=== PATIENT | female | born 1955 ===

== ENCOUNTER 2024-09-08 09:54 | Inpatient (IN) | payer MEDICAID, SELFPAY ==
[2024-09-08] VITALS (25 sets, daily range): BP systolic 101–159; BP diastolic 41–102; PULSE 81–151; RESP 18–137; TEMP 36.6–41.4; O2SAT 92–98; BMI 23.3
--- NOTE | ~2024-09-08 | CT_ITS ---
EXAMINATION: CT HEAD WITHOUT IV CONTRAST HISTORY: AMS, lethargy. TECHNIQUE: Unenhanced helical CT of the head was performed per standard departmental protocol. Coronal and sagittal reformats of the head were also evaluated. One or more of the following techniques was used for dose reduction: Automated exposure control, adjustment of the mA and/or kV according to patient size, use of iterative reconstruction technique. DLP: 782 mGy-cm COMPARISON: There are no prior studies available for comparison. FINDINGS: BRAIN: There is diffuse prominence of the ventricular system and cortical sulci, consistent with atrophy. Periventricular and subcortical white matter hypodensities are noted which are nonspecific, but often seen in the setting of small vessel ischemic disease. There is no mass effect or midline shift. No intra- or extra-axial fluid collections are identified. SINUSES: The visualized paranasal sinuses are clear. The mastoid air cells and middle ear cavities are well pneumatized. ORBITS: The visualized orbits are unremarkable. BONES/SOFT TISSUES: The extracranial soft tissues are unremarkable. The calvarium is intact. No suspicious lytic or sclerotic lesions. CT/CT head/brain wo IV con IMPRESSION: No acute intracranial abnormality. Electronically signed by: Sergio Sniger MD 09/08/2024 01:21 PM EDT
--- NOTE | ~2024-09-08 | XR_ITS ---
EXAMINATION: XR CHEST CLINICAL INFORMATION: hypoxia, cough COMPARISON: None available. TECHNIQUE: Frontal view of the chest was obtained. FINDINGS: No consolidation, pleural effusion or thorax. Cardiomediastinal silhouette is prominent Multilevel thoracic and lumbar spondylosis. XR/XR chest 1V IMPRESSION: No acute airspace disease. Cardiomegaly, mild. Electronically signed by: Mayo Wills MD 09/08/2024 11:15 AM EDT
--- NOTE | ~2024-09-08 | CT_ITS ---
EXAMINATION: CT CHEST WITH CONTRAST CLINICAL INFORMATION: Cough. Hypoxia. Change in mental status. COMPARISON: None available. TECHNIQUE: Multidetector volumetric CT imaging of the chest was obtained after the administration of 65 mL of Omnipaque 350 intravenous contrast without immediate adverse reactions. Axial MIP volume rendering provided. Sagittal and coronal reformatted images were obtained. This CT examination was performed using dose optimization techniques as appropriate, variously including the following: *Automated exposure control *Adjustment of mA and/or kV according to patient size (this includes techniques or standardized protocols for targeted exams where dose is matched to indication/reason for exam; i.e. extremities or head) *Use of iterative reconstruction technique DLP: 327.53 mGy centimeter. FINDINGS: Patient's motion artifact. 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 Patient's large body habitus. Both upper extremities at the side of the thorax. LUNGS: Pulmonary patchy groundglass, bilaterally extending from the perihilar regions. No bronchiectasis. No honeycombing. No gross pulmonary nodules. MEDIASTINUM: No aneurysm or dissection, thoracic aorta. Calcified plaques in the thoracic aorta and coronary arteries. No pericardial effusion. No pneumomediastinum. No hemopericardium. Mild prominent lymph nodes. Unable to evaluate the pulmonary artery or its main branches Heterogeneous prominent thyroid gland with a 2.5 cm mixed solid or cystic nodule left thyroid lobe. PLEURA: No pleural effusions. No pneumothorax. No hemothorax. No calcified pleural plaques. AXILLA: No lymphadenopathy. UPPER ABDOMEN: Unremarkable OSSEOUS STRUCTURES: Decreased attenuation of the liver. Multilevel spondylosis. Osteopenia versus osteoporosis. No acute fracture or listhesis in the axial skeleton. No acute rib fracture. CT/CT chest w IV con IMPRESSION: Consider mild to moderate pulmonary edema in the correct clinical settings. Fleischner guidelines were followed. Electronically signed by: Mayo Wills MD 09/08/2024 01:29 PM EDT
--- NOTE | 2024-09-08 10:10 | ECG_ITS ---
Test Reason : TACHYCARDIA Blood Pressure : */* mmHG Vent. Rate : 140 BPM Atrial Rate : 140 BPM P-R Int : 156 ms QRS Dur : 74 ms QT Int : 266 ms P-R-T Axes : 49 30 42 degrees QTcB Int : 406 ms Sinus tachycardia Nonspecific T wave abnormality Abnormal ECG No previous ECGs available Referred By: Lyudmila Stoner Electronically Signed By: Daniel Miles
--- NOTE | 2024-09-08 10:11 | ED_ITS ---
HPI - General Adult General Chief complaint: General Medical Stated complaint: Fever lethargic low 02 Time Seen by Provider: 09/08/24 09:58 Source: patient, family and EMS Mode of arrival: EMS Limitations: language barrier (Citizen Of [place] speaking) and altered mental status History of Present Illness ED Provider: Lyudmila Stoner NP HPI narrative: Patient is a 69-year-old female who presents emergency department via EMS, patient's daughter and son-in-law are present, she is primarily Citizen [place] speaking. Son-in-law providing majority of history at this time. Entire family has been ill with upper respiratory symptoms over the past few days. She began getting ill with cough and fatigue over the past 3-4 days however she was still able to go to work. Today she was very lethargic, not able to go to work, had an episode of vomiting this morning. When asked whether she is experiencing abdominal pain she shakes her head no. Received Advil 400 mg orally at home. Her son-in-law reports she has a history of diabetes, has not seen a doctor in 2 years, did point of care glucose testing for a year without elevation therefore stopped checking them. She is not currently on any medications. She is not a cigarette smoker. She is oriented to person, disoriented to place and time, answers minimal questions but follows commands appropriately. No recent travel. No recent gastrointestinal symptoms. No recent surgeries. Related Data Home Medications ?Medication ?Instructions ?Recorded ?Confirmed ibuprofen 200 mg tablet (Advil) 400 mg PO Q6H PRN Pain 09/08/24 09/08/24 Allergies Allergy/AdvReac Type Severity Reaction Status Date / Time No Known Allergies Allergy Verified 09/08/24 10:12 [facility] Past Medical History Attestation statement: The following information was validated with the patient. Source: old records reviewed Social History Social History Patient Tobacco Use Status: Never used Tobacco Smoked in Last 30 Days: No Use of substances other than those prescribed or required for medical reasons: No Advance Directives: No Advance Directives Information Provided: Yes Do you have a plan to hurt others: No Plan Nutrition Risks: On aspiration precautions and Poor intake 0-25% >4 days Physical Exam ED Vital Signs: Vital Signs - 24 hr 09/08/24 10:04 09/08/24 10:18 09/08/24 10:30 Temperature 103.1 F H 106.5 F H Pulse Rate 132 H 136 H Pulse Rate [Automated] 140 H Respiratory Rate 30 H 34 H 36 H Blood Pressure 159/102 H Pulse Oximetry 92 92 Oxygen Delivery Method Room Air Room Air Oxygen Flow Rate 09/08/24 10:33 09/08/24 10:50 09/08/24 11:07 Temperature 106.3 F H 105.8 F H 105.5 F H Pulse Rate 138 H 136 H 140 H Pulse Rate [Automated] Respiratory Rate 33 H 35 H 36 H Blood Pressure 101/41 L Pulse Oximetry 95 95 98 Oxygen Delivery Method Nasal Cannula Nasal Cannula Nasal Cannula Oxygen Flow Rate 2 2 2 09/08/24 11:16 09/08/24 11:20 09/08/24 11:25 Temperature 105.3 F H 105.3 F H 105.1 F H Pulse Rate 151 H 148 H Pulse Rate [Automated] Respiratory Rate 33 H 30 H Blood Pressure 103/58 L 115/50 L Pulse Oximetry 97 98 Oxygen Delivery Method Nasal Cannula Nasal Cannula Oxygen Flow Rate 2 2 09/08/24 11:37 09/08/24 11:48 09/08/24 11:54 Temperature 104.9 F H 104.7 F H 104.7 F H Pulse Rate 137 H 135 H 135 H Pulse Rate [Automated] Respiratory Rate 137 H 35 H 30 H Blood Pressure 111/47 L 111/49 L 109/50 L Pulse Oximetry 96 97 96 Oxygen Delivery Method Nasal Cannula Nasal Cannula Nasal Cannula Oxygen Flow Rate 2 2 2 09/08/24 11:58 09/08/24 12:10 09/08/24 12:15 Temperature 104.7 F H 104.0 F H 104.5 F H Pulse Rate 136 H 133 H Pulse Rate [Automated] Respiratory Rate 30 H 25 H Blood Pressure 107/55 L 107/55 L Pulse Oximetry 96 95 Oxygen Delivery Method Nasal Cannula Nasal Cannula Oxygen Flow Rate 2 2 09/08/24 12:32 09/08/24 12:43 09/08/24 13:31 Temperature 104.0 F H 103.8 F H 102.5 F H Pulse Rate 132 H 133 H 129 H Pulse Rate [Automated] Respiratory Rate 30 H 27 H 30 H Blood Pressure 119/56 L 120/65 114/45 L Pulse Oximetry 95 95 95 Oxygen Delivery Method Nasal Cannula Nasal Cannula Nasal Cannula Oxygen Flow Rate 2 2 2 09/08/24 14:06 09/08/24 14:08 Temperature 102.4 F H 101.0 F H Pulse Rate 120 H Pulse Rate [Automated] Respiratory Rate 22 H Blood Pressure 103/50 L Pulse Oximetry 96 Oxygen Delivery Method Nasal Cannula Oxygen Flow Rate 2 BMI result Body Mass Index 23.3 Appearance: Alert.?Oriented to person, place and time. No acute distress.?Normal affect. Eyes: Pupils equal, round and reactive to light.? ENT: Pharynx normal.?? Neck: Normal inspection.? Neck supple.?? CVS: Heart sounds normal. Normal heart rate and rhythm.? Pulses normal.?? Respiratory: No respiratory distress.? Lung sounds rhonchi to the bilateral lower lobes. Room-air hypoxia 91-92%, tachypneic Abdomen: Soft and non-tender. Normoactive bowel sounds. Skin: Skin warm and dry.? Normal skin color.? ?? Extremities: No lower extremity edema.? No calf ttp? Neuro: Moves all extremities spontaneously. No focal neuro deficits. Medications Administered Generic Name Dose Route Start Last Admin Trade Name Freq PRN Reason Stop Dose Admin Lactated Ringer's 1,000 mls @ 125 mls/hr 09/08/24 14:45 09/08/24 14:50 Lr IVCONT 125 mls/hr .Q8H YFN Administration Discontinued Medications Generic Name Dose Route Start Last Admin Trade Name Freq PRN Reason Stop Dose Admin Acetaminophen 650 mg 09/08/24 10:15 09/08/24 10:51 Acetaminophen Supp 650 Mg Supp.Rect WA 09/08/24 10:16 650 mg ONCE ONE Administration Ceftriaxone Sodium 1 gm 09/08/24 10:10 09/08/24 10:24 Ceftriaxone Sodium 1 Gm Vial IVPUSH 09/08/24 10:11 1 gm ONCE ONE Administration Ceftriaxone Sodium 1 gm 09/08/24 10:43 09/08/24 11:08 Ceftriaxone Sodium 1 Gm Vial IVPUSH 09/08/24 10:44 1 gm ONCE ONE Administration Sodium Chloride 1,905 mls @ 1,905 mls/hr 09/08/24 10:15 09/08/24 11:40 Ns 30 ml/kg infuse over 1 hr (1905 ml) 09/08/24 11:14 Infused IV Infusion .Q1H STA Azithromycin 500 mg/ Sodium 250 mls @ 125 mls/hr 09/08/24 10:43 09/08/24 13:30 Chloride IV 09/08/24 12:42 Infused ONCE ONE Infusion Sodium Chloride 1,000 mls @ 999 mls/hr 09/08/24 12:00 09/08/24 14:11 Ns IV 09/08/24 13:00 Infused .Q1H1M YFN Infusion Ibuprofen 600 mg 09/08/24 12:34 09/08/24 12:42 Ibuprofen 600 Mg Tablet PO 09/08/24 12:35 600 mg ONCE ONE Administration Iohexol 100 ml 09/08/24 13:14 09/08/24 13:14 Iohexol 350 Mg/Ml 100 Ml Infus..Btl IV 09/08/24 13:15 65 ml ONCE ONE Administration Oseltamivir Phosphate 75 mg 09/08/24 14:09 09/08/24 14:50 Oseltamivir Phosphate 75 Mg Capsule PO 09/08/24 14:10 75 mg ONCE STA Administration Medical Decision Making Medical Decision Making MDM Narrative: Patient is a 69-year-old female with reported past medical history of diabetes, hyperlipidemia who presents emergency department via EMS with son-in-law present providing majority of history, recent URI household members, patient with illness over the past 3-4 days. Today with the acute change, lethargy, fatigue, febrile tachycardic tachypneic and hypoxic. Sepsis alert called. Suspect respiratory etiology, potentially pneumonia, will cover with Rocephin, blood cultures lactic acid being obtained, sepsis fluid bolus has been ordered, antipyretic to be administered. She had a single episode of vomiting reported this morning, has soft nonrigid abdomen, no guarding, no reported pain upon palpation. 10:43 Nursing staff have advised me that they placed a rectal temperature probe with reading of 106.5, she has received rectal Tylenol, IV fluids are being administered, ice packs have been placed in a cooling blanket is on. Will add an additional Rocephin 1 g and azithromycin for coverage. Pending labs and CXR at this time, straight catheterization to be performed, pending CT imaging. 11:47 Patient found to have influenza a, urinary tract infection, anticipating hospital admission for encephalopathy and further treatment. Remains tachycardic and febrile at this time, cooling blankets still on, tachypnea has decreased, O2 saturation 96% on 2 L via nasal cannula. Patient's family updated on plan of care at this time 13:[address] without acute pathology, CT of the chest without infectious etiology. Repeat lactic acid was 4.7, patient then received an additional L normal saline IV fluid bolus post sepsis bolus. Differential Diagnosis Differential Diagnoses: The differential diagnosis associated with the presentation includes (URI, bronchitis, pneumonia, coronavirus, influenza, UTI, lower suspicion for acute intra-abdominal pathology/surgical abdomen, as per gastroenteritis) Admission/Observation Consideration of admission/observation: Escalation of care including admission/observation considered Lab Data MDM Lab Attestation statement: I reviewed the patient's lab results. 09/08/24 10:22 09/08/24 10:22 Labs: Lab Results 09/08/24 09/08/24 09/08/24 Range/Units 10:22 10:24 10:30 WBC 10.4 (4.8-10.8) X10*3/uL RBC 5.04 (4.20-5.50) X10*6/uL Hgb 14.6 (12.0-16.0) g/dl Hct 43.9 (37.0-47.0) % MCV 87.1 (80.0-98.0) fL MCH 29.0 (27.0-33.0) pg MCHC 33.3 (31.0-35.0) g/dl RDW 12.5 (11.0-16.0) % Plt Count 260 (160-400) X10*3/uL MPV 11.0 (9.4-12.3) fL Immature Gran % (Auto) 2.1 H (0.0-0.4) % Neut % (Auto) 77.9 H (45-73) % Lymph % (Auto) 11.4 L (20-40) % [place] % (Auto) 7.2 (2-11) % Eos % (Auto) 0.8 (0-4) % Baso % (Auto) 0.6 (0-2) % Lymph # (Auto) 1.2 (1.2-4.9) X10*3/uL [place] # (Auto) 0.8 (0.1-1.2) X10*3/uL Eos # (Auto) 0.1 (0.0-0.4) X10*3/uL Baso # (Auto) 0.1 (0.0-0.2) X10*3/uL Abs Immat Gran (auto) 0.22 H (0.00-0.03) X10*3/uL Absolute Neuts (auto) 8.1 (2.0-8.3) x10*3/uL Absolute Nucleated RBC 0.000 (0.0-0.012) X10*3/uL Nucleated RBC % (auto) 0.0 (0.0-0.2) /100WBC Hold Blue Top SEE NOTE VBG pH 7.46 H (7.32-7.43) VBG pCO2 30 mmHg VBG pO2 42 mmHg VBG HCO3 21 L (22-26) mmol/L VBG O2 Saturation 72.0 % VBG Base Excess -0.9 mmol/L Sodium 138 (135-145) mmol/L Potassium 3.2 L (3.3-5.1) mmol/L Chloride 101 (96-108) mmol/L Carbon Dioxide 23 (22-29) mmol/L Anion Gap 17 (12-20) BUN 17 H (9-16) mg/dL Creatinine 0.99 (0.5-1.4) mg/dL Estim Creat Clear Calc 48.9 Estimated GFR 56 POC Glucose (60-115) mg/dL Random Glucose 152 H (60-115) mg/dL Lactic Acid 3.5 H* (0.5-2.0) mmol/L Lactic Acid F/U @ 2Hr (0.5-2.0) mmol/L Calcium 8.8 (8.4-10.2) mg/dL Magnesium 1.9 (1.6-2.6) mg/dL Total Bilirubin 0.4 (0.0-1.0) mg/dL AST 92 H (5-31) U/L ALT 94 H (0-31) U/L Alkaline Phosphatase 133 H (39-117) U/L Total Creatine Kinase 47 (26-140) U/L Troponin I High Sens < 2.7 (<3.5-17.0) ng/L B-Natriuretic Peptide 19 (<100) pg/mL Total Protein 7.4 (6.5-8.0) g/dL Albumin 4.4 (3.5-5.0) g/dL Lipase 30 (8-78) U/L Hold Red Top See Note Urine Color Urine Appearance Urine pH (5.0-9.0) Ur Specific Camp (1.005-1.025) Urine Protein (Neg-Trace) mg/dL Urine Glucose (UA) (Negative) mg/dL Urine Ketones (Negative) mg/dL Urine Blood (Negative) Urine Nitrite (Negative) Ur Leukocyte Esterase (Negative) Urine RBC (0-2) /HPF Urine WBC (0-5) /HPF Ur Squamous Epith Cells (0-2) /HPF Urine Bacteria (None Seen) Hyaline Casts (0-2) /LPF Influenza Type A (PCR) POSITIVE A (Negative) Influenza Type B (PCR) NEGATIVE (Negative) RSV RNA Qual (PCR) NEGATIVE (Negative) SARS-CoV-2 RNA (RT-PCR) NEGATIVE (Negative) 09/08/24 09/08/24 09/08/24 Range/Units 10:47 11:19 12:50 WBC (4.8-10.8) X10*3/uL RBC (4.20-5.50) X10*6/uL Hgb (12.0-16.0) g/dl Hct (37.0-47.0) % MCV (80.0-98.0) fL MCH (27.0-33.0) pg MCHC (31.0-35.0) g/dl RDW (11.0-16.0) % Plt Count (160-400) X10*3/uL MPV (9.4-12.3) fL Immature Gran % (Auto) (0.0-0.4) % Neut % (Auto) (45-73) % Lymph % (Auto) (20-40) % [place] % (Auto) (2-11) % Eos % (Auto) (0-4) % Baso % (Auto) (0-2) % Lymph # (Auto) (1.2-4.9) X10*3/uL [place] # (Auto) (0.1-1.2) X10*3/uL Eos # (Auto) (0.0-0.4) X10*3/uL Baso # (Auto) (0.0-0.2) X10*3/uL Abs Immat Gran (auto) (0.00-0.03) X10*3/uL Absolute Neuts (auto) (2.0-8.3) x10*3/uL Absolute Nucleated RBC (0.0-0.012) X10*3/uL Nucleated RBC % (auto) (0.0-0.2) /100WBC Hold Blue Top VBG pH (7.32-7.43) VBG pCO2 mmHg VBG pO2 mmHg VBG HCO3 (22-26) mmol/L VBG O2 Saturation % VBG Base Excess mmol/L Sodium (135-145) mmol/L Potassium (3.3-5.1) mmol/L Chloride (96-108) mmol/L Carbon Dioxide (22-29) mmol/L Anion Gap (12-20) BUN (9-16) mg/dL Creatinine (0.5-1.4) mg/dL Estim Creat Clear Calc Estimated GFR POC Glucose 123 H (60-115) mg/dL Random Glucose (60-115) mg/dL Lactic Acid (0.5-2.0) mmol/L Lactic Acid F/U @ 2Hr 4.7 H* (0.5-2.0) mmol/L Calcium (8.4-10.2) mg/dL Magnesium (1.6-2.6) mg/dL Total Bilirubin (0.0-1.0) mg/dL AST (5-31) U/L ALT (0-31) U/L Alkaline Phosphatase (39-117) U/L Total Creatine Kinase (26-140) U/L Troponin I High Sens (<3.5-17.0) ng/L B-Natriuretic Peptide (<100) pg/mL Total Protein (6.5-8.0) g/dL Albumin (3.5-5.0) g/dL Lipase (8-78) U/L Hold Red Top Urine Color Yellow Urine Appearance Clear Urine pH 6.5 (5.0-9.0) Ur Specific [place] 1.015 (1.005-1.025) Urine Protein 30 (1+) H (Neg-Trace) mg/dL Urine Glucose (UA) Negative (Negative) mg/dL Urine Ketones Negative (Negative) mg/dL Urine Blood Large (3+) H (Negative) Urine Nitrite Positive H (Negative) Ur Leukocyte Esterase Negative (Negative) Urine RBC 11-20 H (0-2) /HPF Urine WBC 0-5 (0-5) /HPF Ur Squamous Epith Cells 0-2 (0-2) /HPF Urine Bacteria Trace (None Seen) Hyaline Casts 0-2 (0-2) /LPF Influenza Type A (PCR) (Negative) Influenza Type B (PCR) (Negative) RSV RNA Qual (PCR) (Negative) SARS-CoV-2 RNA (RT-PCR) (Negative) Independent Interpretation I performed an independent interpretation of an: EKG (Sinus tachycardia with ventricular rate of 140, ISIAH, QTC 406, no ST-elevation) Radiology Impression Discussion of test interpretation with radiology: I have reviewed the radiologist's reading. Radiologist Impression: XR/XR chest 1V IMPRESSION: No acute airspace disease. Cardiomegaly, mild. CT/CT head/brain wo IV con IMPRESSION: No acute intracranial abnormality. CT/CT chest w IV con IMPRESSION: Consider mild to moderate pulmonary edema in the correct clinical settings. Independent Historian Clinical information obtained from an independent historian. History obtained from or confirmed by: EMS and Other (See narrative above) Critical Care Time Critical Care Time Critical Care Time: Yes Total Critical Care Time: 60 Attestation: Time is exclusive of separately billable procedures. Time includes: direct patient care, patient reassessment, coordination of patient care, interpretation of data (laboratory data, pulse oximetry, arterial blood gases and chest xrays), review of patient's medical records, medical consultation and documentation of patient care. Procedures excluded from critical care time: central intravenous line placement and electrocardiography. Discharge Plan Discharge Clinical Impression: Acidosis, lactic, Acute UTI, Influenza A, Encephalopathy Patient Disposition: Admitted As Inpatient
--- NOTE | 2024-09-08 10:15 | PC.NURSE ---
Pt biba from home for cough/lethargy/nausea/vomiting x3 days. Per family- pt has felt hot at home, has not checked temperature at home. Pt normally independent/ambulatory at baseline- arrives lethargic, non responsive to questions. Pt lethargic/minimally responsive to questions/not following commands, able to track with eyes. Pt placed on court recording monitor- sinus tach 140s-150s, tachypneic- 30s, oral temp 103.1. CAR PUSHER Lukasz @ bedside with tech and this RN. Sepsis alert called @ 1013am. [place] Tylenol given, rectal probe placed reading 106.5 rectal temp. Ice packs placed under pt arms/groin/neck/feet. Pt also placed on cooling blanket. BP cycling q10 min- pt hypertensive 180s/100s upon arrival. Verbal order per VALENTE Lal for straight cath- 14fr straight cath done with output 700ccs of clear/yellow urine and sent to lab. Labs/ekg and blood cultures obtained and sent to lab. 18g IV placed by EMS- patent, asymptomatic. Additional IV placed 22g Left wrist- patent, asymptomatic. Abx given after blood cultures obtained, sepsis fluids infusing per MAR. Call ring within reach, all needs met at this time.
[2024-09-08 10:32] LABS: MANUAL DIFF FLAG NO
[2024-09-08 10:34] LABS: Venous Blood Gas Refer to POC result
[2024-09-08 10:35] LABS: VBG HCO3 21 mmol/L (22-26); VBG O2 % Saturation 72.0 %
[2024-09-08 10:51] LABS: Alanine Aminotransferase 94 U/L (0-31); Albumin Level 4.4 g/dL (3.5-5.0); Alkaline Phosphatase 133 U/L (39-117); Anion Gap 17 (12-20); Aspartate Amino Transferase 92 U/L (5-31); Blood Urea Nitrogen 17 mg/dL (9-16); Calcium 8.8 mg/dL (8.4-10.2); Carbon Dioxide 23 mmol/L (22-29); Chloride 101 mmol/L (96-108); Creatinine Clr Calc Pharmacy 48.9; Estimated Glomerular Filt Rate 56; Hematocrit 43.9 % (37.0-47.0); Hemoglobin 14.6 g/dl (12.0-16.0); Imm Gran Abs Auto 0.22 X10*3/uL (0.00-0.03); Imm Gran Pct Auto 2.1 % (0.0-0.4); Lipase 30 U/L (8-78); Lymphocytes Absolute Auto 1.2 X10*3/uL (1.2-4.9); Magnesium 1.9 mg/dL (1.6-2.6); Mean Corpuscular HGB Conc 33.3 g/dl (31.0-35.0); Mean Corpuscular Hemoglobin 29.0 pg (27.0-33.0); Mean Corpuscular Volume 87.1 fL (80.0-98.0); NRBC Abs Auto 0.000 X10*3/uL (0.0-0.012); NRBC Pct Auto 0.0 /100WBC (0.0-0.2); Platelet Count 260 X10*3/uL (160-400); Potassium 3.2 mmol/L (3.3-5.1); Red Blood Count 5.04 X10*6/uL (4.20-5.50); Sodium 138 mmol/L (135-145); Total Protein 7.4 g/dL (6.5-8.0); White Blood Count 10.4 X10*3/uL (4.8-10.8)
[2024-09-08] MEDS: Acetaminophen Supp 650 MG SUPP.RECT PR ×2 (10:51→21:18)
[2024-09-08 10:57] LABS: B Type Natriuretic Peptide 19 pg/mL (<100)
[2024-09-08 11:00] LABS: Troponin-I High Sensitivity < 2.7 ng/L (<3.5-17.0)
[2024-09-08 11:21] LABS: Resp Syncy Virus RNA Qual PCR NEGATIVE (Negative); SARS COV2 PCR INHOUSE NEGATIVE (Negative)
[2024-09-08 11:33] LABS: Appearance Urine Clear; Glucose Urine UA Negative (Negative); PH 6.5 (5.0-9.0); Specific Gravity - Urine 1.015 (1.005-1.025); UMIC TRIGGER UACC YES
[2024-09-08 11:50] LABS: UACC Culture Trigger YES
[2024-09-08 12:30] LABS: Reflex Lactate? Lactic Acid Added
--- NOTE | 2024-09-08 12:45 | PC.NURSE ---
patient passed nursing swallow evaluation prior to PO medication administration. pt tolerated medication administration - pills whole w/ water w/o difficulty.
[2024-09-08] MEDS: iohexoL 350 MG/ML 100 ML INFUS..BTL IV (13:14)
[2024-09-08 13:19] LABS: ~Lactic Acid-LAB USE ONLY 4.7 mmol/L (0.5-2.0)
--- NOTE | 2024-09-08 13:45 | PC.NURSE ---
Pt temp decreasing- rectal temp 102.5. Pt remains sinus tach on cardiac specialist- 130s, Lukasz [employer] TENDER aware. Remains on continuous O2 probe, rectal temp probe, cardiac specialist, and BP cycling q 10min to monitor. Pt more alert- responding to questions/able to follow commands/make needs known. Pt passed bedside swallow eval w/o difficulty. Pt having conversation with at bedside. Pt remains on cooling blanket- 102.5 rectal temp. Family updated on plan of care, pending CT results. Call ring within reach, all needs met.
--- NOTE | 2024-09-08 14:41 | PHA.MEDREC ---
Addendum entered by Jackson Carney RPh 09/08/24 14:51: MED REC REVIEWED BY [facility] Original Note: Pharmacy Consult ? Medication Reconciliation Pharmacy has completed the medication reconciliation. Spoke with pt son-in-law at bedside and he confirmed the pt is only taking Advil (2 tabs) as needed for pain and he states the pt took them yesterday.
[2024-09-08 14:43] LABS: Glucose, Whole Blood 123 mg/dL (60-115)
[2024-09-08] MEDS: Lactated Ringers 1,000 ML 125 ML IVCONT ×2 (14:50→21:57)
--- NOTE | 2024-09-08 14:51 | P.HPHOSP_ITS ---
History of Present Illness Date of Service: 09/08/24 Attending physician on admission: Indigo Madison Chief Complaint: Confusion Gilmer Rascon is a 69 years old [place] woman with no significant past medical history accompanied by her son-in-law (he helped with translation) due to confusion. She has been complaining of fever, headache and mild cough. These symptoms has been going on for 3 days. The patient is more alert now and able to answer my questions. She denied chest pain, shortness on breath, abdominal pain, nausea, vomiting or diarrhea. There are multiple family members with same symptoms. She has been taking aspirin for her symptoms. She does not take medications daily. At some point she was diagnosed with diabetes but subsequently medications were stopped after her glucose significantly improved. In the ED, she was found to be quite tachycardic and tachypneic. Max temp was 106.5 degrees. Most recent 1 is 100.1, O2 sat 96% -she was placed on oxygen, nasal cannula 2 L/min, heart rate 116 and normal blood pressure (at the time of my evaluation). There is no leukocytosis, differential remarkable for 77.9% neutrophils and 11.4 % lymphocytes. There is marked lactic acidosis of 4.7. PH is 7.46 and pCO2 30. There is hypokalemia and normal CO2. BUN is 17 and creatinine 0.99. Transaminases and alk-phos are elevated. Troponin is < 2.7 BNP and lipase are normal. Urinalysis showed pH of 6.5, specific gravity 1.015, 1+ proteinuria, negative glucose, negative ketones, large blood, positive nitrate, negative leukocyte steroids, RBC 11-20, WBC 0-5. Viral serologies positive for influenza. RSV and COVID are negative. Head CT scan showed no acute intracranial abnormality. Chest CT scan with IV contrast showed: Consider [id number] pulmonary edema in the correct clinical setting. ECG shows sinus tachycardia, HR 140 bpm and nonspecific T-wave abnormality. ED tx: Ceftriaxone 1 g, azithromycin 500 mg IV, acetaminophen 650 mg, NS 2,905 ml bolus, ibuprofen 600 mg p.o. Review of Systems 2 Review of Systems: All 12 systems were reviewed and normal except as noted in HPI. [facility] Social History Patient Tobacco Use Status: Never used Tobacco Smoked in Last 30 Days: No Use of substances other than those prescribed or required for medical reasons: No Advance Directives: No Advance Directives Information Provided: Yes Do you have a plan to hurt others: No Plan Nutrition Risks: On aspiration precautions and Poor intake 0-25% >4 days Meds Allergies Allergy/AdvReac Type Severity Reaction Status Date / Time No Known Allergies Allergy Verified 09/08/24 10:12 Active Medications: Current Medications Acetaminophen (Acetaminophen 325 Mg Tablet) 975 mg PO Q6H PRN PRN Reason: Pain, Mild 1-3,fever,headache Calcium Carbonate (Calcium Carbonate 750 Mg Tab.Chew) 750 mg PO Q4H PRN PRN Reason: Heartburn Enoxaparin Sodium (Enoxaparin Sodium 40 Mg/0.4 Ml Syringe) 40 mg SUBCUT Q24H YFN Lactated Ringer's (Lr) 1,000 mls @ 125 mls/hr IVCONT .Q8H YFN Magnesium Hydroxide (Milk Of Magnesia 30 Ml Oral.Susp) 30 ml PO DAILY PRN PRN Reason: Constipation Sodium Chloride (0.9 % Sodium Chloride Flush 3 Ml Syringe) 3 ml IVFLUSH QSHIFT YFN Home Medications ?Medication ?Instructions ?Recorded ?Confirmed ?Last Taken ?Type ibuprofen 200 mg tablet (Advil) 400 mg PO Q6H PRN Pain 09/08/24 09/08/24 09/07/24 History Physical Exam 2 Vital Signs and Narrative: Vital Signs: Last Vital Signs Temp 101.0 F H 09/08/24 14:08 Pulse 120 H 09/08/24 14:08 Resp 22 H 09/08/24 14:08 BP 103/50 L 09/08/24 14:08 Pulse Ox 96 09/08/24 14:08 O2 Del Method Nasal Cannula 09/08/24 14:08 O2 Flow Rate 2 09/08/24 14:08 BMI result Body Mass Index 23.3 Constitutional - Awake and Alert, No apparent distress HEENT - PERRL, EOMI Heart - RRR, No edema Lungs - Normal lung expansion, Normal respiratory effort, No respiratory distress, CTA bilaterally Abdomen - NT / ND; +BS; No rebound or guarding Extremities - no calf tenderness bilaterally, no swelling Musculoskeletal - Normal inspection, normal ROM Skin - Warm/Dry. Pallor. Neurological - Alert & oriented x3. Moving all extremities spontaneously. No facial droop. Normal speech. No meningismus. Psychological - Appropriate affect Results Labs 09/08/24 16:58 09/08/24 16:58 Labs: Laboratory Results - last 24 hr 09/08/24 09/08/24 09/08/24 10:22 10:24 10:30 MCV 87.1 MCH 29.0 MCHC 33.3 RDW 12.5 Plt Count 260 MPV 11.0 Immature Gran % (Auto) 2.1 H Neut % (Auto) 77.9 H Lymph % (Auto) 11.4 L [place] % (Auto) 7.2 Eos % (Auto) 0.8 Baso % (Auto) 0.6 Lymph # (Auto) 1.2 [place] # (Auto) 0.8 Eos # (Auto) 0.1 Baso # (Auto) 0.1 Abs Immat Gran (auto) 0.22 H Absolute Neuts (auto) 8.1 Absolute Nucleated RBC 0.000 Nucleated RBC % (auto) 0.0 Hold Blue Top SEE NOTE VBG pH 7.46 H VBG pCO2 30 VBG pO2 42 VBG HCO3 21 L VBG O2 Saturation 72.0 VBG Base Excess -0.9 Anion Gap 17 Estim Creat Clear Calc 48.9 Estimated GFR 56 POC Glucose Random Glucose 152 H Lactic Acid 3.5 H* Lactic Acid F/U @ 2Hr Calcium 8.8 Magnesium 1.9 Total Bilirubin 0.4 AST 92 H ALT 94 H Alkaline Phosphatase 133 H B-Natriuretic Peptide 19 Total Protein 7.4 Albumin 4.4 Lipase 30 Hold Red Top See Note Urine Color Urine Appearance Urine pH Ur Specific [place] Urine Protein Urine Glucose (UA) Urine Ketones Urine Blood Urine Nitrite Ur Leukocyte Esterase Urine RBC Urine WBC Ur Squamous Epith Cells Urine Bacteria Hyaline Casts Influenza Type A (PCR) POSITIVE A Influenza Type B (PCR) NEGATIVE RSV RNA Qual (PCR) NEGATIVE SARS-CoV-2 RNA (RT-PCR) NEGATIVE 09/08/24 09/08/24 09/08/24 10:47 11:19 12:50 MCV MCH MCHC RDW Plt Count MPV Immature Gran % (Auto) Neut % (Auto) Lymph % (Auto) [place] % (Auto) Eos % (Auto) Baso % (Auto) Lymph # (Auto) [place] # (Auto) Eos # (Auto) Baso # (Auto) Abs Immat Gran (auto) Absolute Neuts (auto) Absolute Nucleated RBC Nucleated RBC % (auto) Hold Blue Top VBG pH VBG pCO2 VBG pO2 VBG HCO3 VBG O2 Saturation VBG Base Excess Anion Gap Estim Creat Clear Calc Estimated GFR POC Glucose 123 H Random Glucose Lactic Acid Lactic Acid F/U @ 2Hr 4.7 H* Calcium Magnesium Total Bilirubin AST ALT Alkaline Phosphatase B-Natriuretic Peptide Total Protein Albumin Lipase Hold Red Top Urine Color Yellow Urine Appearance Clear Urine pH 6.5 Ur Specific [place] 1.015 Urine Protein 30 (1+) H Urine Glucose (UA) Negative Urine Ketones Negative Urine Blood Large (3+) H Urine Nitrite Positive H Ur Leukocyte Esterase Negative Urine RBC 11-20 H Urine WBC 0-5 Ur Squamous Epith Cells 0-2 Urine Bacteria Trace Hyaline Casts 0-2 Influenza Type A (PCR) Influenza Type B (PCR) RSV RNA Qual (PCR) SARS-CoV-2 RNA (RT-PCR) Imaging Radiologist's Impressions: Impressions Chest X-Ray 09/08/24 09:50 IMPRESSION: No acute airspace disease. Cardiomegaly, mild. Electronically signed by: Mayo Wills MD 09/08/2024 11:15 AM EDT RP Chest CT 09/08/24 12:00 IMPRESSION: Consider mild to moderate pulmonary edema in the correct clinical settings. Fleischner guidelines were followed. Electronically signed by: Mayo Wills MD 09/08/2024 01:29 PM EDT RP Head CT 09/08/24 12:00 IMPRESSION: No acute intracranial abnormality. Electronically signed by: Sergio Singer MD 09/08/2024 01:21 PM EDT RP Assessment and Plan (1) Encephalitis due to influenza virus: Status: Acute (2) Elevated LFTs: Status: Acute (3) Severe sepsis: Status: Acute Plan Gilmer Rascon is a 69 y/o [place] woman admitted with: Encephalitis secondary to influenza A. Admit to hospitalist service. Telemetry. Pulse oximetry. Droplet precautions. Neuro checks. Start therapy with Tamiflu 75 mg p.o. b.i.d (will adjust to renal function is neccessary. Supportive therapy IV fluids and Tylenol. ID consult. Severe sepsis criteria: Tachycardia, tachypnea, fever and acute lactic acidosis; secondary to above Received 30ml/kg bolus (NS) + extra liter. Continue Tamiflu. Blood cultures obtained -will follow results. Continue to monitor vital signs, and lactic acid. Elevated transaminases and alk-phos. Likely secondary to influenza infection. Continue to monitor. DVT prophylaxis: Lovenox Code status: Full Patient will need hospitalization for at least 2 midnights for encephalopathy secondary to influenza treatment with continuous monitoring of neurological status, supportive therapy and evaluation by subspecialty. Quality Stroke Does the patient have a stroke diagnosis?: No VTE Prior VTE?: No VTE Risk Level:: Medical - moderate - high VTE Device Contraindication: Treatment Not Indicated VTE Drug Contraindication: N/A - Med Ordered
[2024-09-08 14:53] LABS: Reflex Lactate? 2 Y
[2024-09-08 15:50] LABS: ~Lactic Acid-LAB USE ONLY 2.3 mmol/L (0.5-2.0)
[2024-09-08 17:03] LABS: MANUAL DIFF FLAG NO
[2024-09-08 17:14] LABS: Hematocrit 40.9 % (37.0-47.0); Hemoglobin 13.3 g/dl (12.0-16.0); Imm Gran Abs Auto 0.13 X10*3/uL (0.00-0.03); Imm Gran Pct Auto 1.1 % (0.0-0.4); Lymphocytes Absolute Auto 0.7 X10*3/uL (1.2-4.9); Mean Corpuscular HGB Conc 32.5 g/dl (31.0-35.0); Mean Corpuscular Hemoglobin 28.8 pg (27.0-33.0); Mean Corpuscular Volume 88.5 fL (80.0-98.0); NRBC Abs Auto 0.000 X10*3/uL (0.0-0.012); NRBC Pct Auto 0.0 /100WBC (0.0-0.2); Platelet Count 240 X10*3/uL (160-400); Red Blood Count 4.62 X10*6/uL (4.20-5.50); White Blood Count 12.4 X10*3/uL (4.8-10.8)
[2024-09-08 17:25] LABS: Alanine Aminotransferase 131 U/L (0-31); Albumin Level 3.6 g/dL (3.5-5.0); Alkaline Phosphatase 126 U/L (39-117); Anion Gap 15 (12-20); Aspartate Amino Transferase 135 U/L (5-31); Blood Urea Nitrogen 11 mg/dL (9-16); Calcium 7.7 mg/dL (8.4-10.2); Carbon Dioxide 23 mmol/L (22-29); Chloride 105 mmol/L (96-108); Creatinine Clr Calc Pharmacy 55.0; Estimated Glomerular Filt Rate > 60; Magnesium 1.7 mg/dL (1.6-2.6); Potassium 3.9 mmol/L (3.3-5.1); Sodium 139 mmol/L (135-145); Total Protein 6.2 g/dL (6.5-8.0)
--- NOTE | 2024-09-08 17:34 | PC.NURSE ---
Pt rectal temp 99.0- taken off cooling blanket @ 1600. Vitals updated in worklist. Rectal probe in place to continuously monitor pt temp.
--- NOTE | 2024-09-08 21:24 | PC.NURSE ---
pt medicated per APR. rectal tylenol given, pt tolerated well, Son in law at bedside.
--- NOTE | 2024-09-08 21:26 | PC.NURSE ---
glascow done with a score of 14.
[2024-09-09] VITALS (8 sets, daily range): BP systolic 99–137; BP diastolic 58–78; PULSE 71–107; RESP 16–20; TEMP 36.3–36.7; O2SAT 94–99; BMI 23.4
[2024-09-09] MEDS: Lactated Ringers 1,000 ML 125 ML IVCONT ×3 (06:32→21:58)
[2024-09-09 07:13] LABS: MANUAL DIFF FLAG NO
[2024-09-09 07:18] LABS: Hematocrit 42.1 % (37.0-47.0); Hemoglobin 13.4 g/dl (12.0-16.0); Imm Gran Abs Auto 0.02 X10*3/uL (0.00-0.03); Imm Gran Pct Auto 0.3 % (0.0-0.4); Lymphocytes Absolute Auto 0.7 X10*3/uL (1.2-4.9); Mean Corpuscular HGB Conc 31.8 g/dl (31.0-35.0); Mean Corpuscular Hemoglobin 28.5 pg (27.0-33.0); Mean Corpuscular Volume 89.6 fL (80.0-98.0); NRBC Abs Auto 0.000 X10*3/uL (0.0-0.012); NRBC Pct Auto 0.0 /100WBC (0.0-0.2); Platelet Count 207 X10*3/uL (160-400); Red Blood Count 4.70 X10*6/uL (4.20-5.50); White Blood Count 6.6 X10*3/uL (4.8-10.8)
[2024-09-09 07:42] LABS: Anion Gap 10 (12-20); Blood Urea Nitrogen 9 mg/dL (9-16); Calcium 8.5 mg/dL (8.4-10.2); Carbon Dioxide 25 mmol/L (22-29); Chloride 109 mmol/L (96-108); Creatinine Clr Calc Pharmacy 80.8; Estimated Glomerular Filt Rate > 60; Magnesium 2.1 mg/dL (1.6-2.6); Potassium 4.0 mmol/L (3.3-5.1); Sodium 140 mmol/L (135-145)
[2024-09-09 08:36] LABS: Alanine Aminotransferase 157 U/L (0-31); Albumin Level 3.5 g/dL (3.5-5.0); Alkaline Phosphatase 114 U/L (39-117); Aspartate Amino Transferase 130 U/L (5-31); Total Protein 6.1 g/dL (6.5-8.0)
--- NOTE | 2024-09-09 09:28 | MHC.CM.PN ---
Patient lives in a house with her Son, [id number], Grandchildren & Extended family; Son will transport to home at time of dc. Patient required no services nor DME [employer] and home, self care, is the goal.CM has initiated and will follow for dc planning. PCP is from [facility] in [place] but Patient has not seen the PCP for a long time.
--- NOTE | 2024-09-09 13:47 | P.PNIM_ITS ---
Subjective Subjective Date of Service: 09/09/24 Interval History: seen and evaluated more alert and interactive asking for real food denies fever or chills having headache Review of Systems Review of Systems: Yes all other systems are reviewed and are negative Physical Exam 2 Vital Signs: Vital Signs: Last Vital Signs Temp 97.8 F 09/09/24 11:51 Pulse 107 H 09/09/24 11:51 Resp 20 09/09/24 11:51 BP 99/65 09/09/24 11:51 Pulse Ox 99 09/09/24 11:51 O2 Del Method Room Air 09/09/24 11:51 O2 Flow Rate 2 09/09/24 07:37 BMI result Body Mass Index 23.4 Const: Other: Constitutional : interactive, not in distress Cardiovascular : no JVP, no lower extremity edema Respiratory : bilateral chest movement, not in resp distress , on O2 supplement Gastrointestinal: soft, lax, Non tender Skin : Warm, Dry Neurological : Alert & oriented to self and place, No focal deficit Objective Data Active Medications Acetaminophen (Acetaminophen 325 Mg Tablet) 975 mg PO Q6H PRN PRN Reason: Pain, Mild 1-3,fever,headache Last Admin: 09/09/24 10:19 Dose: 975 mg Documented By: CORDELL Calcium Carbonate (Calcium Carbonate 750 Mg Tab.Chew) 750 mg PO Q4H PRN PRN Reason: Heartburn Enoxaparin Sodium (Enoxaparin Sodium 40 Mg/0.4 Ml Syringe) 40 mg SUBCUT Q24H [facility] Last Admin: 09/09/24 10:20 Dose: 40 mg Documented By: CORDELL Lactated Ringer's (Lr) 1,000 mls @ 125 mls/hr IVCONT .Q8H [facility] Last Admin: 09/09/24 06:32 Dose: 125 mls/hr Documented By: BATOOL Magnesium Hydroxide (Milk Of Magnesia 30 Ml Oral.Susp) 30 ml PO DAILY PRN PRN Reason: Constipation Sodium Chloride (0.9 % Sodium Chloride Flush 3 Ml Syringe) 3 ml IVFLUSH QSHIFT [facility] Last Admin: 09/09/24 12:14 Dose: Not Given Documented By: CORDELL Non-Admin Reason: IV Running Labs 09/09/24 06:30 09/09/24 06:30 Labs: Laboratory Results - last 24 hr 09/08/24 09/08/24 09/08/24 10:22 10:47 15:15 MCV MCH MCHC RDW Plt Count MPV Immature Gran % (Auto) Neut % (Auto) Lymph % (Auto) [place] % (Auto) Eos % (Auto) Baso % (Auto) Lymph # (Auto) [place] # (Auto) Eos # (Auto) Baso # (Auto) Abs Immat Gran (auto) Absolute Neuts (auto) Absolute Nucleated RBC Nucleated RBC % (auto) Anion Gap Estim Creat Clear Calc Estimated GFR POC Glucose 123 H Random Glucose Lactic Acid F/U @ 4Hr 2.3 H* Calcium Magnesium Total Bilirubin Direct Bilirubin AST ALT Alkaline Phosphatase Total Creatine Kinase 47 Total Protein Albumin 09/08/24 09/09/24 16:58 06:30 MCV 88.5 89.6 MCH 28.8 28.5 MCHC 32.5 31.8 RDW 12.6 12.8 Plt Count 240 207 MPV 10.6 10.8 Immature Gran % (Auto) 1.1 H 0.3 Neut % (Auto) 84.4 H 80.1 H Lymph % (Auto) 6.0 L 10.6 L [place] % (Auto) 8.1 8.5 Eos % (Auto) 0.1 0.2 Baso % (Auto) 0.3 0.3 Lymph # (Auto) 0.7 L 0.7 L [place] # (Auto) 1.0 0.6 Eos # (Auto) 0.0 0.0 Baso # (Auto) 0.0 0.0 Abs Immat Gran (auto) 0.13 H 0.02 Absolute Neuts (auto) 10.4 H 5.3 Absolute Nucleated RBC 0.000 0.000 Nucleated RBC % (auto) 0.0 0.0 Anion Gap 15 10 L Estim Creat Clear Calc 55.0 80.8 Estimated GFR > 60 > 60 POC Glucose Random Glucose 116 H 100 Lactic Acid F/U @ 4Hr Calcium 7.7 L D 8.5 D Magnesium 1.7 2.1 Total Bilirubin 0.4 0.4 Direct Bilirubin 0.2 AST 135 H 130 H ALT 131 H 157 H Alkaline Phosphatase 126 H 114 Total Creatine Kinase Total Protein 6.2 L 6.1 L Albumin 3.6 3.5 Microbiology Microbiology Results: Microbiology 09/08/24 Unknown Urine Culture - Preliminary Urine Catheterized - Straight Catheter Culture in progress. 09/08/24 10:22 Blood Culture - Preliminary Blood - Venous No growth after 24 hours. 09/08/24 10:22 Blood Culture - Preliminary Blood - Venous No growth after 24 hours. Assessment and Plan (1) Elevated LFTs: Status: Acute (2) Acidosis, lactic: Status: Acute (3) Acute UTI: Status: Acute (4) Severe sepsis: Status: Acute (5) Influenza A: Status: Acute (6) Encephalopathy: Status: Acute Plan Gilmer Rascon is a 69 y/o [place] woman admitted with: Acute toxic\metabolic encephalopathy secondary to influenza A. improving, more alert Droplet precautions. Neuro checks. concerns over viral encephaliaitis Continue therapy with Tamiflu 75 mg p.o. b.i.d Supportive therapy IV fluids and Tylenol. ID consult. Severe viral sepsis resolved Tachycardia, tachypnea, fever and acute lactic acidosis; secondary to above Received 30ml/kg bolus (NS) + extra liter. Continue Tamiflu. Blood cultures obtained Elevated transaminases and alk-phos. Likely secondary to influenza infection. Continue to monitor. DVT prophylaxis: Lovenox Code status: Full Patient will need hospitalization for overnight for encephalopathy secondary to influenza treatment with continuous monitoring of neurological status, supportive therapy and evaluation by subspecialty. Quality Stroke Does the patient have a stroke diagnosis?: No VTE Prior VTE?: No VTE Risk Level:: Medical - moderate - high VTE Device Contraindication: Treatment Not Indicated VTE Drug Contraindication: N/A - Med Ordered
--- NOTE | 2024-09-09 14:42 | W.PM.IDCN ---
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 She has flu A and says she was sleeping with grandchild who was ill and playing in playground. She has no tuberculosis history and no travel. Review of Systems Review of Systems: Yes all other systems are reviewed and are negative [facility] Past Medical History Medical History No known health problems Social History Social History Household Members: Family Housing: Apartment Do you presently have visiting nurse or other home services: No Patient Tobacco Use Status: Never used Tobacco Second Hand Smoke Exposure: No service: No Meds Allergies Allergy/AdvReac Type Severity Reaction Status Date / Time No Known Allergies Allergy Verified 09/08/24 10:12 Active Medications: Current Medications Acetaminophen (Acetaminophen 325 Mg Tablet) 975 mg PO Q6H PRN PRN Reason: Pain, Mild 1-3,fever,headache Last Admin: 09/09/24 10:19 Dose: 975 mg Calcium Carbonate (Calcium Carbonate 750 Mg Tab.Chew) 750 mg PO Q4H PRN PRN Reason: Heartburn Enoxaparin Sodium (Enoxaparin Sodium 40 Mg/0.4 Ml Syringe) 40 mg SUBCUT Q24H [facility] Last Admin: 09/09/24 10:20 Dose: 40 mg Lactated Ringer's (Lr) 1,000 mls @ 125 mls/hr IVCONT .Q8H [facility] Last Admin: 09/09/24 14:07 Dose: 125 mls/hr Magnesium Hydroxide (Milk Of Magnesia 30 Ml Oral.Susp) 30 ml PO DAILY PRN PRN Reason: Constipation Sodium Chloride (0.9 % Sodium Chloride Flush 3 Ml Syringe) 3 ml IVFLUSH QSHIFT [facility] Last Admin: 09/09/24 12:14 Dose: Not Given Home Medications ?Medication ?Instructions ?Recorded ?Confirmed ?Last Taken ?Type ibuprofen 200 mg tablet (Advil) 400 mg PO Q6H PRN Pain 09/08/24 09/08/24 09/07/24 History Physical Exam Vital Signs: Vital Signs: Last Vital Signs Temp 97.8 F 09/09/24 11:51 Pulse 107 H 09/09/24 11:51 Resp 20 09/09/24 11:51 BP 99/65 09/09/24 11:51 Pulse Ox 99 09/09/24 11:51 O2 Del Method Room Air 09/09/24 11:51 O2 Flow Rate 2 09/09/24 07:37 BMI result Body Mass Index 23.4 Const: General: cooperative HEENT: Head: Yes normal to inspection Face and sinus: Yes normal facial exam Mouth: Normal oral and palatal mucosa present Teeth and gingiva: dentition normal Eyes: General: appearance normal, both eyes and all related structures Pupils: Equal, round and reactive pupils present Resp: Effort & Inspection: normal respiratory effort Cardio: Rate: regular rate Rhythm: regular rhythm GI: Palpation (GI): Soft to palpation and nontender : General: Yes no CVA tenderness Back/Spine/Pelvis: Back: no CVA tenderness Skin: General skin exam: no rashes or lesions noted Neuro: General: moves all extremities Cranial nerves: Yes Equal, round and reactive pupils present Extrem: General: Yes normal to inspection Psych: Appearance: grossly normal Results Labs 09/09/24 06:30 09/09/24 06:30 Labs: Short CBC 09/08/24 09/09/24 Range/Units 16:58 06:30 WBC 12.4 H 6.6 (4.8-10.8) X10*3/uL Hgb 13.3 13.4 (12.0-16.0) g/dl Hct 40.9 42.1 (37.0-47.0) % Plt Count 240 207 (160-400) X10*3/uL BMP 09/08/24 09/09/24 16:58 06:30 Sodium 139 140 Potassium 3.9 D 4.0 Chloride 105 109 H Carbon Dioxide 23 25 BUN 11 9 Creatinine 0.88 0.60 Calcium 7.7 L D 8.5 D Cardiac Enzymes 09/08/24 Range/Units 10:22 Total Creatine Kinase 47 (26-140) U/L Liver Function 09/08/24 09/09/24 Range/Units 16:58 06:30 Total Bilirubin 0.4 0.4 (0.0-1.0) mg/dL Direct Bilirubin 0.2 (0.0-0.5) mg/dL AST 135 H 130 H (5-31) U/L ALT 131 H 157 H (0-31) U/L Alkaline Phosphatase 126 H 114 (39-117) U/L Albumin 3.6 3.5 (3.5-5.0) g/dL Microbiology Microbiology Results: Microbiology 09/08/24 Unknown Urine Catheterized - Straight Catheter Urine Culture - Preliminary Culture in progress. 09/08/24 10:22 Blood - Venous Blood Culture - Preliminary No growth after 24 hours. 09/08/24 10:22 Blood - Venous Blood Culture - Preliminary No growth after 24 hours. 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 Would give 5 days Tamiflu 75 mg bid but it was discontinued today,not sure why
[2024-09-09] MEDS: guaiFENesin DM 200/20/10 ML 10 ML SYRUP PO (22:28)
[2024-09-10 03:26] VITALS: BP 136/66; PULSE 81; RESP 16; TEMP 36.7; O2SAT 95
[2024-09-10 07:02] LABS: MANUAL DIFF FLAG NO
[2024-09-10 07:07] LABS: Hematocrit 41.3 % (37.0-47.0); Hemoglobin 13.4 g/dl (12.0-16.0); Imm Gran Abs Auto 0.01 X10*3/uL (0.00-0.03); Imm Gran Pct Auto 0.3 % (0.0-0.4); Lymphocytes Absolute Auto 1.2 X10*3/uL (1.2-4.9); Mean Corpuscular HGB Conc 32.4 g/dl (31.0-35.0); Mean Corpuscular Hemoglobin 28.9 pg (27.0-33.0); Mean Corpuscular Volume 89.2 fL (80.0-98.0); NRBC Abs Auto 0.000 X10*3/uL (0.0-0.012); NRBC Pct Auto 0.0 /100WBC (0.0-0.2); Platelet Count 219 X10*3/uL (160-400); Red Blood Count 4.63 X10*6/uL (4.20-5.50); White Blood Count 3.5 X10*3/uL (4.8-10.8)
[2024-09-10] MEDS: Lactated Ringers 1,000 ML 125 ML IVCONT (07:15)
[2024-09-10 07:17] VITALS: BP 133/81; PULSE 79; RESP 16; TEMP 36.9; O2SAT 96
[2024-09-10 07:25] LABS: Anion Gap 14 (12-20); Blood Urea Nitrogen 7 mg/dL (9-16); Calcium 8.5 mg/dL (8.4-10.2); Carbon Dioxide 22 mmol/L (22-29); Chloride 110 mmol/L (96-108); Creatinine Clr Calc Pharmacy 79.4; Estimated Glomerular Filt Rate > 60; Potassium 3.7 mmol/L (3.3-5.1); Sodium 142 mmol/L (135-145)
[2024-09-10] MEDS: 0.9 % Sodium Chloride Flush 3 ML SYRINGE IVFLUSH ×3 (08:00→22:28)
[2024-09-10] MEDS: Butalb/Acetamin/Caff 50/325/40 TABLET 2 TAB PO (09:23)
[2024-09-10 11:16] VITALS: BP 115/60; PULSE 85; RESP 16; TEMP 36.2; O2SAT 96
--- NOTE | 2024-09-10 12:01 | HO.PM.IMPN ---
Subjective Subjective Date of Service: 09/10/24 Interval History: seen and evaluated more alert and interactive denies fever or chills having headaches Review of Systems Review of Systems: Yes all other systems are reviewed and are negative Physical Exam Vital Signs: Vital Signs: Last Vital Signs Temp 97.2 F 09/10/24 11:16 Pulse 85 09/10/24 11:16 Resp 16 09/10/24 11:16 BP 115/60 09/10/24 11:16 Pulse Ox 96 09/10/24 11:16 O2 Del Method Room Air 09/10/24 11:16 O2 Flow Rate 2 09/09/24 07:37 BMI result Body Mass Index 23.4 Const: Other: Constitutional : interactive, not in distress Cardiovascular : no JVP, no lower extremity edema Respiratory : bilateral chest movement, not in resp distress , on O2 supplement Gastrointestinal: soft, lax, Non tender Skin : Warm, Dry Neurological : Alert & oriented to self and place, No focal deficit Objective Data Active Medications Acetaminophen (Acetaminophen 325 Mg Tablet) 975 mg PO Q6H PRN PRN Reason: Pain, Mild 1-3,fever,headache Last Admin: 09/09/24 10:19 Dose: 975 mg Documented By: CORDELL Calcium Carbonate (Calcium Carbonate 750 Mg Tab.Chew) 750 mg PO Q4H PRN PRN Reason: Heartburn Enoxaparin Sodium (Enoxaparin Sodium 40 Mg/0.4 Ml Syringe) 40 mg SUBCUT Q24H [facility] Last Admin: 09/10/24 09:24 Dose: 40 mg Documented By: JANEL Guaifenesin/Dextromethorphan (Guaifenesin Dm 200/20/10 Ml 10 Ml Syrup) 10 ml PO Q6H PRN PRN Reason: Cough Last Admin: 09/09/24 22:28 Dose: 10 ml Documented By: BRITTANY Magnesium Hydroxide (Milk Of Magnesia 30 Ml Oral.Susp) 30 ml PO DAILY PRN PRN Reason: Constipation Oseltamivir Phosphate (Oseltamivir Phosphate 75 Mg Capsule) 75 mg PO Q12H [facility] Stop: 09/14/24 22:01 Last Admin: 09/10/24 11:04 Dose: 75 mg Documented By: JANEL Sodium Chloride (0.9 % Sodium Chloride Flush 3 Ml Syringe) 3 ml IVFLUSH QSHIFT [facility] Last Admin: 09/10/24 08:00 Dose: 3 ml Documented By: JANEL Labs 09/10/24 06:48 09/10/24 06:48 Labs: Laboratory Results - last 24 hr 09/10/24 06:48 MCV 89.2 MCH 28.9 MCHC 32.4 RDW 12.7 Plt Count 219 MPV 10.9 Immature Gran % (Auto) 0.3 Neut % (Auto) 50.5 Lymph % (Auto) 34.6 [place] % (Auto) 13.4 H Eos % (Auto) 0.6 Baso % (Auto) 0.6 Lymph # (Auto) 1.2 [place] # (Auto) 0.5 Eos # (Auto) 0.0 Baso # (Auto) 0.0 Abs Immat Gran (auto) 0.01 Absolute Neuts (auto) 1.8 L Absolute Nucleated RBC 0.000 Nucleated RBC % (auto) 0.0 Anion Gap 14 Estim Creat Clear Calc 79.4 Estimated GFR > 60 Random Glucose 103 Calcium 8.5 Microbiology Microbiology Results: Microbiology 09/08/24 Unknown Urine Culture - Preliminary Urine Catheterized - Straight Catheter Culture in progress. 09/08/24 10:22 Blood Culture - Preliminary Blood - Venous No growth after 24 hours. 09/08/24 10:22 Blood Culture - Preliminary Blood - Venous No growth after 24 hours. Assessment and Plan (1) Elevated LFTs: Status: Acute (2) Acidosis, lactic: Status: Acute (3) Toxic metabolic encephalopathy: Status: Acute (4) Influenza A: Status: Acute Plan Gilmer Rascon is a 69 y/o Chinese woman admitted with: Acute toxic\metabolic encephalopathy secondary to influenza A. improving, more alert Droplet precautions. Neuro checks. concerns over viral encephaliaitis given headache and AMS; now improving; CSF was not tested Continue therapy with Tamiflu 75 mg p.o. b.i.d Supportive therapy IV fluids and Tylenol. ID consult. 5 days of Tamiflu physical decondition PT rec SNF , CW looking for placement Severe viral sepsis resolved Tachycardia, tachypnea, fever and acute lactic acidosis; secondary to above Received 30ml/kg bolus (NS) + extra liter. Continue Tamiflu. Blood cultures obtained Elevated transaminases and alk-phos. Likely secondary to influenza infection. Continue to monitor. DVT prophylaxis: Lovenox Code status: Full Patient will need hospitalization for overnight for encephalopathy secondary to influenza treatment with continuous monitoring of neurological status, supportive therapy and evaluation by subspecialty. Quality Stroke Does the patient have a stroke diagnosis?: No VTE Prior VTE?: No VTE Risk Level:: Medical - moderate - high VTE Device Contraindication: Treatment Not Indicated VTE Drug Contraindication: N/A - Med Ordered
--- NOTE | 2024-09-10 12:16 | MHC.CM.PN ---
Per MD, Patient is not yet medically cleared for dc. PT is recommending STR.CM & RN met with Patient at bedside with an interpreter deaf device and Patient is agreeable to STR and the initiation of a SNF search.CM will continue to follow.
[2024-09-10 15:12] VITALS: BP 108/65; PULSE 86; RESP 16; TEMP 36.3; O2SAT 98
[2024-09-10 19:37] VITALS: BP 119/67; PULSE 90; RESP 16; TEMP 36.4; O2SAT 97
[2024-09-10 20:18] LABS: Appearance Urine Clear; Glucose Urine UA Negative (Negative); PH 6.5 (5.0-9.0); Specific Gravity - Urine 1.015 (1.005-1.025); UMIC TRIGGER UA YES
[2024-09-10] MEDS: Butalb/Acetamin/Caff 50/325/40 TABLET 1 TAB PO (22:34)
[2024-09-10 23:42] VITALS: BP 151/76; PULSE 66; RESP 16; TEMP 35.9; O2SAT 97
[2024-09-11 03:47] VITALS: BP 118/77; PULSE 76; RESP 16; TEMP 35.9; O2SAT 95
[2024-09-11 07:06] LABS: Hematocrit 41.7 % (37.0-47.0); Hemoglobin 13.3 g/dl (12.0-16.0); Imm Gran Abs Auto 0.01 X10*3/uL (0.00-0.03); Imm Gran Pct Auto 0.4 % (0.0-0.4); Lymphocytes Absolute Auto 1.3 X10*3/uL (1.2-4.9); MANUAL DIFF FLAG SCAN; Mean Corpuscular HGB Conc 31.9 g/dl (31.0-35.0); Mean Corpuscular Hemoglobin 28.9 pg (27.0-33.0); Mean Corpuscular Volume 90.5 fL (80.0-98.0); NRBC Abs Auto 0.000 X10*3/uL (0.0-0.012); NRBC Pct Auto 0.0 /100WBC (0.0-0.2); Platelet Count 216 X10*3/uL (160-400); Red Blood Count 4.61 X10*6/uL (4.20-5.50); SCAN SMEAR FLAG 1; White Blood Count 2.7 X10*3/uL (4.8-10.8)
[2024-09-11 07:18] VITALS: BP 129/64; PULSE 73; RESP 20; TEMP 36.2; O2SAT 96
[2024-09-11 07:25] LABS: Alanine Aminotransferase 92 U/L (0-31); Albumin Level 3.5 g/dL (3.5-5.0); Alkaline Phosphatase 87 U/L (39-117); Anion Gap 12 (12-20); Aspartate Amino Transferase 40 U/L (5-31); Blood Urea Nitrogen 11 mg/dL (9-16); Calcium 8.5 mg/dL (8.4-10.2); Carbon Dioxide 26 mmol/L (22-29); Chloride 110 mmol/L (96-108); Creatinine Clr Calc Pharmacy 63.8; Estimated Glomerular Filt Rate > 60; Potassium 3.9 mmol/L (3.3-5.1); Sodium 144 mmol/L (135-145); Total Protein 6.1 g/dL (6.5-8.0)
[2024-09-11] MEDS: 0.9 % Sodium Chloride Flush 3 ML SYRINGE IVFLUSH ×3 (08:30→22:50)
[2024-09-11] MEDS: Butalb/Acetamin/Caff 50/325/40 TABLET 1 TAB PO (08:37)
[2024-09-11 11:29] VITALS: BP 120/63; PULSE 82; RESP 20; TEMP 36.1; O2SAT 96
--- NOTE | 2024-09-11 15:46 | MHC.CM.PN ---
PT NOT YET MEDICALLY CLEARED SHE HAS BEEN CLEARED BY PT AND WILL NOT NEED SERVICES DCP NOW, HOME VIA PRIVATE TRANSPORT
[2024-09-11 15:53] VITALS: BP 117/67; PULSE 90; RESP 16; TEMP 36.1; O2SAT 94
--- NOTE | 2024-09-11 18:01 | HO.PM.IMPN ---
Subjective Subjective Date of Service: 09/11/24 Interval History: Reports feels much better Continues to have nonproductive cough Denies SOB or difficulty breathing Seen and evaluated with family at bedside who report she appears back to baseline without confusion Pt answering appropriately Denies fever, chills, nausea, vomiting No headache Review of Systems Review of Systems: Yes all other systems are reviewed and are negative Physical Exam Vital Signs: Vital Signs: Last Vital Signs Temp 97 F 09/11/24 15:53 Pulse 90 09/11/24 15:53 Resp 16 09/11/24 15:53 BP 117/67 09/11/24 15:53 Pulse Ox 94 09/11/24 15:53 O2 Del Method Room Air 09/11/24 15:53 O2 Flow Rate 2 09/09/24 07:37 BMI result Body Mass Index 23.4 General: AOx3, no acute distress Resp: CTA bilaterally CVS: S1, S2, RRR GI: +BS, NT, no distention Skin: Warm, dry Neuro: Cranial nerves II-XII grossly intact bilaterally. Motor grossly intact bilaterally. Strength of upper and lower extremities bilaterally grossly intact Extremities: No edema Psych: Appropriate affect Objective Data Active Medications Acetaminophen (Acetaminophen 325 Mg Tablet) 975 mg PO Q6H PRN PRN Reason: Pain, Mild 1-3,fever,headache Last Admin: 09/09/24 10:19 Dose: 975 mg Documented By: CORDELL Acetaminophen/Butalbital/Caffeine (Butalb/Acetamin/Caff 50/325/40 Tablet) 1 tab PO Q4H PRN PRN Reason: Headache/Pain, Scale 1-10 Last Admin: 09/11/24 08:37 Dose: 1 tab Documented By: KIMI Calcium Carbonate (Calcium Carbonate 750 Mg Tab.Chew) 750 mg PO Q4H PRN PRN Reason: Heartburn Ceftriaxone Sodium (Ceftriaxone Sodium 1 Gm Vial) 1 gm IVPUSH Q24H [facility] Last Admin: 09/11/24 14:56 Dose: 1 gm Documented By: KIMI Enoxaparin Sodium (Enoxaparin Sodium 40 Mg/0.4 Ml Syringe) 40 mg SUBCUT Q24H [facility] Last Admin: 09/11/24 08:29 Dose: 40 mg Documented By: KIMI Guaifenesin/Dextromethorphan (Guaifenesin Dm 200/20/10 Ml 10 Ml Syrup) 10 ml PO Q6H PRN PRN Reason: Cough Last Admin: 09/09/24 22:28 Dose: 10 ml Documented By: BRITTANY Magnesium Hydroxide (Milk Of Magnesia 30 Ml Oral.Susp) 30 ml PO DAILY PRN PRN Reason: Constipation Oseltamivir Phosphate (Oseltamivir Phosphate 75 Mg Capsule) 75 mg PO Q12H [facility] Stop: 09/14/24 22:01 Last Admin: 09/11/24 08:30 Dose: 75 mg Documented By: KIMI Sodium Chloride (0.9 % Sodium Chloride Flush 3 Ml Syringe) 3 ml IVFLUSH QSHIFT [facility] Last Admin: 09/11/24 16:26 Dose: 3 ml Documented By: SRIDHAR Labs 09/11/24 06:11 09/11/24 06:11 Labs: Laboratory Results - last 24 hr 09/10/24 09/11/24 20:05 06:11 MCV 90.5 MCH 28.9 MCHC 31.9 RDW 12.8 Plt Count 216 MPV 11.1 Immature Gran % (Auto) 0.4 Neut % (Auto) 36.5 L Lymph % (Auto) 49.1 H [place] % (Auto) 12.2 H Eos % (Auto) 1.1 Baso % (Auto) 0.7 Lymph # (Auto) 1.3 [place] # (Auto) 0.3 Eos # (Auto) 0.0 Baso # (Auto) 0.0 Abs Immat Gran (auto) 0.01 Absolute Neuts (auto) 1.0 L Absolute Nucleated RBC 0.000 Nucleated RBC % (auto) 0.0 Smear Tech's Comments VERIFIED Anion Gap 12 Estim Creat Clear Calc 63.8 Estimated GFR > 60 Random Glucose 114 Calcium 8.5 Total Bilirubin 0.2 Direct Bilirubin < 0.2 AST 40 H ALT 92 H Alkaline Phosphatase 87 Total Protein 6.1 L Albumin 3.5 Urine Color Yellow Urine Appearance Clear Urine pH 6.5 Ur Specific [place] 1.015 Urine Protein Negative Urine Glucose (UA) Negative Urine Ketones Negative Urine Blood Small (1+) H Urine Nitrite Negative Ur Leukocyte Esterase Negative Urine RBC 11-20 H Urine WBC 0-5 Ur Squamous Epith Cells 0-2 Urine Bacteria None Seen Hyaline Casts 0-2 Microbiology Microbiology Results: Microbiology 09/08/24 Unknown Urine Culture - Final Urine Catheterized - Straight Catheter Escherichia coli Assessment and Plan (1) Encephalitis due to influenza virus: Status: Acute Plan Gilmer Rascon is a 69 y/o Latvian-speaking woman admitted with: Acute toxic\metabolic encephalopathy secondary to influenza A. Resolved, back to baseline per family at bedside; answering appropriately Continue droplet precautions concerns over viral encephaliaitis given headache and AMS; now improving; CSF was not tested Continue therapy with Tamiflu 75 mg p.o. b.i.d Supportive therapy IV fluids and Tylenol. ID consult. 5 days of Tamiflu Physical decondition PT rec SNF , CW looking for placement Pt seen ambulating on her own in the room Will get PT re-evaulation to see if STR necessary Severe viral sepsis Resolved Tachycardia, tachypnea, fever and acute lactic acidosis; Recondary to above Received 30ml/kg bolus (NS) + extra liter. Continue Tamiflu. Blood cultures negative Elevated transaminases and alk-phos. Likely secondary to influenza infection. Continues to improve with above treatment Pt asymptomatic Continue to monitor Question of UTI UA questionable Urine culture growing E coli <10,000 Discontinue ceftriaxone DVT prophylaxis: Lovenox Code status: Full Patient will need hospitalization for overnight for encephalopathy secondary to influenza treatment with continuous monitoring of neurological status, supportive therapy and evaluation by subspecialty. Quality Stroke Does the patient have a stroke diagnosis?: No VTE Prior VTE?: No VTE Risk Level:: Medical - moderate - high VTE Device Contraindication: Treatment Not Indicated VTE Drug Contraindication: N/A - Med Ordered
[2024-09-11 18:43] VITALS: BP 132/74; PULSE 82; RESP 16; TEMP 36.1; O2SAT 97
--- NOTE | 2024-09-11 18:52 | PC.NURSE ---
Assumed care of patient at approximately 1840. Spoke with patient via [employer] hourly sign language interpreter, ID#[id number]. Patient A&Ox3. Independent. No c/o pain. VSS. No signs or symptoms of respiratory distress present. Patient oriented to room and unit. IV's assessed and flushed. Report given to oncoming nurse.
[2024-09-11 23:43] VITALS: BP 131/61; PULSE 67; RESP 16; TEMP 36; O2SAT 97
[2024-09-12 03:01] VITALS: BP 128/66; PULSE 75; RESP 16; TEMP 36.1; O2SAT 96
[2024-09-12 07:14] LABS: Alanine Aminotransferase 77 U/L (0-31); Albumin Level 3.6 g/dL (3.5-5.0); Alkaline Phosphatase 81 U/L (39-117); Anion Gap 12 (12-20); Aspartate Amino Transferase 38 U/L (5-31); Blood Urea Nitrogen 11 mg/dL (9-16); Calcium 8.6 mg/dL (8.4-10.2); Carbon Dioxide 25 mmol/L (22-29); Chloride 112 mmol/L (96-108); Creatinine Clr Calc Pharmacy 69.2; Estimated Glomerular Filt Rate > 60; Potassium 4.2 mmol/L (3.3-5.1); Sodium 145 mmol/L (135-145); Total Protein 6.4 g/dL (6.5-8.0)
[2024-09-12 07:31] VITALS: BP 131/71; PULSE 84; RESP 17; TEMP 36.3; O2SAT 100
[2024-09-12 11:58] VITALS: BP 134/67; PULSE 93; RESP 17; TEMP 36.4; O2SAT 98
--- NOTE | 2024-09-12 12:22 | P.DS_ITS ---
DS: Providers Provider Date of Service: 09/12/24 Date of admission: 09/08/24 14:30 Date of discharge: 09/12/24 Primary care physician: Nonstaff Physician Consults: 09/08/24 15:15 Consult to Infectious Diseases Routine Consulting Provider: [facility] [place] [facility] Reason for consultation: Encephalitis, influenza type A Has provider been notified: No DS: Diagnosis Discharge Diagnosis (1) Encephalitis due to influenza virus: Status: Acute DS: Summary Hospital Course Hospital Course: From admission HPI: Date of Service: 09/08/24 Attending physician on admission: [facility] [place] Chief Complaint: Confusion Gilmer Rascon is a 69 years old [place] woman with no significant past medical history accompanied by her son-in-law (he helped with translation) due to confusion. She has been complaining of fever, headache and mild cough. These symptoms has been going on for 3 days. The patient is more alert now and able to answer my questions. She denied chest pain, shortness on breath, abdominal pain, nausea, vomiting or diarrhea. There are multiple family members with same symptoms. She has been taking aspirin for her symptoms. She does not take medications daily. At some point she was diagnosed with diabetes but subsequently medications were stopped after her glucose significantly improved. In the ED, she was found to be quite tachycardic and tachypneic. Max temp was 106.5 degrees. Most recent 1 is 100.1, O2 sat 96% -she was placed on oxygen, nasal cannula 2 L/min, heart rate 116 and normal blood pressure (at the time of my evaluation). There is no leukocytosis, differential remarkable for 77.9% neutrophils and 11.4 % lymphocytes. There is marked lactic acidosis of 4.7. PH is 7.46 and pCO2 30. There is hypokalemia and normal CO2. BUN is 17 and creatinine 0.99. Transaminases and alk-phos are elevated. Troponin is < 2.7 BNP and lipase are normal. Urinalysis showed pH of 6.5, specific gravity 1.015, 1+ proteinuria, negative glucose, negative ketones, large blood, positive nitrate, negative leukocyte steroids, RBC 11-20, WBC 0-5. Viral serologies positive for influenza. RSV and COVID are negative. Head CT scan showed no acute intracranial abnormality. Chest CT scan with IV contrast showed: Consider [id number] pulmonary edema in the correct clinical setting. ECG shows sinus tachycardia, HR 140 bpm and nonspecific T-wave abnormality. ED tx: Ceftriaxone 1 g, azithromycin 500 mg IV, acetaminophen 650 mg, NS 2,905 ml bolus, ibuprofen 600 mg p.o. Hospital course: Pt was admitted to the hospital for acute metabolic encephalopathy secondary to influenza type a infection. Pt was treated with Tamiflu 75 mg p.o. b.i.d. and supportive care to good effect. Hospital stay was uncomplicated. Mentation continued to improve and has been answering appropriately since yesterday. According to family at bedside pt's mentation back to baseline. Initial Pt evaluation suggested possible STR or home with services; however, as patient's mentation improved so did her mobility which appeared back to baseline yesterday. Pt was re-evaluated by PT who did not feel pt required discharge home with PT services. Care plan has been reviewed with pt and translator and interpreter services, and pt is agreeable to the plan. She will be discharged home today without services. She should continue to take Tamiflu 75 mg twice a day for the next 3 days. Total course of Tamiflu is 10 doses; pt has already taken 5 doses while in the hospital, and should take the remaining 5 doses at home. Initial UA was not convincing for acute UTI, but urine culture positive for E coli and pt was started on empiric ceftriaxone. However, urine culture showed only a small amount of bacteria -- <10,000 -- and there was no indication to continue antibiotics. Pt without any other significant PMH and not on home medications. Time Attestation Discharge Coordination Time (in mins): 32 Quality: Safe Use of Opioids Does Pt have an Active Cancer Diagnosis on the Problem List?: No Quality: Stroke Does the patient have a stroke diagnosis?: No Physical Exam Vital Signs: Vital Signs: Last Vital Signs Temp 97.5 F 09/12/24 11:58 Pulse 93 09/12/24 11:58 Resp 17 09/12/24 11:58 BP 134/67 09/12/24 11:58 Pulse Ox 98 09/12/24 11:58 O2 Del Method Room Air 09/12/24 11:58 O2 Flow Rate 2 09/09/24 07:37 BMI result Body Mass Index 23.4 General: AOx3, no acute distress Resp: CTA bilaterally CVS: S1, S2, RRR GI: +BS, NT, no distention Skin: Warm, dry Neuro: Cranial nerves II-XII grossly intact bilaterally. Motor grossly intact bilaterally Extremities: No edema Psych: Appropriate affect DS: Data Data Completed and Pending Labs on day of discharge: Laboratory Results - last 24 hr 09/12/24 09/12/24 06:07 06:08 Hold Purple Top SEE NOTE Sodium 145 Potassium 4.2 Chloride 112 H Carbon Dioxide 25 Anion Gap 12 BUN 11 Creatinine 0.70 Estim Creat Clear Calc 69.2 Estimated GFR > 60 Random Glucose 105 Calcium 8.6 Total Bilirubin 0.3 AST 38 H ALT 77 H Alkaline Phosphatase 81 Total Protein 6.4 L Albumin 3.6 Preliminary micro results at discharge 09/08/24 10:22 Blood Culture - Preliminary Blood - Venous No growth after 48 hours. 09/08/24 10:22 Blood Culture - Preliminary Blood - Venous No growth after 48 hours. Discharge Plan Discharge Anticipated Discharge Date/Time: 09/10/24 11:47 Patient Disposition: Home, Self-Care Discharge Diagnosis: Acute metabolic encephalopathy secondary to influenza type a infection Referrals: Physician,Nonstaff [Primary Care Provider, Medical] - 1 Week Discharge Medications: New oseltamivir [Tamiflu] 75 mg capsule 75 mg PO BID Qty: 5 0RF Rx Instructions: Take one tablet twice a day for the next 3 days. You have already received 5 doses while in the hospital and need an additional 5 doses to complete the prescription course Continued ibuprofen [Advil] 200 mg Tablet 400 mg PO Q6H PRN (Reason: Pain) Discharge Orders: Discharge Order (Routine); Ordered 09/12/24 Ordered By: Cristian Skinner Activity on Discharge: As tolerated Stand Alone Forms: Patient Portal Discharge page Print Language: [place] Care Plan Goals: Resolution of symptoms See below Health Concerns: Acute encephalopathy Influenza type a infection Plan of Treatment: Take Tamiflu 75mg as prescribed: take one tablet twice a day for the next 3 days. The total course dose is 10 tablets. You have already taken 5 doses while in the hospital; you will need to take the last 5 doses at home You were treated with antibiotics for possible UTI; however, urine culture with only a small amount of bacteria, which means likely contaminated. No indication for additional antibiotics at home. Assessment: See discharge summary Patient Instructions: Influenza (DC) Discharge Date/Time: 09/12/24 13:13
--- NOTE | 2024-09-12 12:25 | MHC.CM.PN ---
pt dcd home self care
== END 2024-09-12 13:13 | disposition home or self-care (01) | DRG 720 ==
LOC: HO.ED 11:06 → HO.EDOVER 14:52 → HO.IMC 23:49 → HO.S3 09-11 17:26
PROVIDERS: Nurse Practitioner Family; Student in an Organized Health Care Education/Training Program; Admitting Provider Internal Medicine; Emergency Provider Emergency Medicine; Visit Provider Student in an Organized Health Care Education/Training Program
DX: A41.89 Other specified sepsis (principal); J10.81 Influenza due to other identified influenza virus with encephalopathy; Z20.822 Contact with and (suspected) exposure to COVID-19; R65.20 Severe sepsis without septic shock
CPT/HCPCS: 36415; 70450; 71045; 71260; 80048; 80053; 80076; 81001; 82550; 82803; 82947; 83605; 83690; 83735; 83880; 84484; 85025; 87040; 87086; 87088; 87186; 87637; 93005; 97116; 97162; 99285; J0456; J0696; J1650; J7120; Q9967

== ENCOUNTER → 2024-09-08 10:10 | Outpatient (BNV) | payer MEDICAID, SELFPAY | PROVIDERS: Admitting Provider Internal Medicine; Emergency Provider Emergency Medicine; Visit Provider Internal Medicine Cardiovascular Disease | DX: R00.0 Tachycardia, unspecified (principal) | CPT/HCPCS: 93010 ==

== ENCOUNTER → 2024-09-08 10:10 | Outpatient (BNV) | payer MEDICAID, SELFPAY | PROVIDERS: Emergency Provider Emergency Medicine; Visit Provider Radiology Diagnostic Radiology | DX: R09.02 Hypoxemia (principal); G31.9 Degenerative disease of nervous system, unspecified; R05.9 Cough, unspecified | CPT/HCPCS: 70450; 71045; 71260 ==

== ENCOUNTER → 2024-09-08 14:30 | Outpatient (BNV) | payer MEDICAID, SELFPAY | PROVIDERS: Admitting Provider Internal Medicine; Emergency Provider Emergency Medicine; Visit Provider Internal Medicine | DX: J09.X2 Influenza due to identified novel influenza A virus with other respiratory manifestations (principal); A41.9 Sepsis, unspecified organism; R65.20 Severe sepsis without septic shock | CPT/HCPCS: 99232 ==

== ENCOUNTER → 2024-09-08 14:30 | Outpatient (BNV) | payer MEDICAID, SELFPAY | PROVIDERS: Admitting Provider Internal Medicine; Emergency Provider Emergency Medicine; Visit Provider Internal Medicine | DX: R79.89 Other specified abnormal findings of blood chemistry (principal); E87.20 Acidosis, unspecified; G92.8 Other toxic encephalopathy; J10.1 Influenza due to other identified influenza virus with other respiratory manifestations | CPT/HCPCS: 99223; 99233 ==